=== PATIENT | female | born 1960 | race Caucasian/White ===

== ENCOUNTER → 2016-06-10 | Outpatient (CLI) | payer BC ==
--- NOTE | 2016-06-11 11:19 | MM ---
Reason for exam: screening (asymptomatic). Last mammogram was performed 1 year and 2 months ago. History: Family history of breast cancer in mother at age 76 and breast cancer in aunt. Benign right US cyst aspiration ea add of the right breast, October 17, 2007. Benign right US cyst aspiration ea add of the right breast, October 17, 2007. Benign right US cyst aspiration of the right breast, October 17, 2007. Cyst aspiration of the right breast, 2004. Took hormonal contraceptives for 1 year beginning at age 18. Physical Findings: A clinical breast exam by your physician is recommended on an annual basis and results should be correlated with mammographic findings. MG 3D Screening Mammo W/Cad Bilateral CC and MLO view(s) were taken. Prior study comparison: April 24, 2015, bilateral MG 3d screening mammo w/cad. The breast tissue is extremely dense which could obscure a lesion on mammography. There is chronic nodularity in the left breast. No significant changes when compared with prior studies. ASSESSMENT: Benign, BI-RAD 2 RECOMMENDATION: Routine screening mammogram of both breasts in 1 year.
== END | disposition home or self-care (01) ==
LOC: RADMAMWWP 14:57
PROVIDERS: ATTEND Family Medicine
DX: Z12.31 Encounter for screening mammogram for malignant neoplasm of breast (principal)
CPT/HCPCS: 77063; G0202

== ENCOUNTER 2016-10-25 06:42 | Emergency (ER) | payer BC ==
[2016-10-25 06:49] VITALS: BP 152/70; PULSE 100; RESP 20; TEMP 98.7
--- NOTE | 2016-10-25 07:25 | ED ---
General Adult HPI - General Chief complaint: Fall Stated complaint: Fall/Hip Pain Time Seen by Provider: 10/25/16 06:45 Source: patient, RN notes reviewed Mode of arrival: wheelchair Limitations: no limitations - History of Present Illness Initial comments: This is a 56-year-old female who presents emergency department complaining that her right buttocks and posterior thigh hurt when she stands. Patient states yesterday she tripped and fell while walking the dog and since then that areas been tender. Patient has not noticed any bruising. Patient is full range motion of the hip and knee. Patient is a small abrasion to the knee. Patient denies any head injury or neck injury. Patient denies any upper extremity injury. Patient denies any chest abdomen or back injury. Patient's only complaint is right buttocks and the hamstring area - Related Data Home Medications Medication Instructions Recorded Confirmed Atorvastatin [Lipitor] 10 mg PO HS 10/23/15 11/05/15 Metoprolol Succinate [Toprol XL] 100 mg PO HS 10/23/15 11/05/15 Allergies Allergy/AdvReac Type Severity Reaction Status Date / Time Sulfa (Sulfonamide Allergy Rash/Hives Verified 10/25/16 06:49 Antibiotics) Review of Systems ROS Statement: Those systems with pertinent positive or pertinent negative responses have been documented in the HPI. ROS Other: All systems not noted in ROS Statement are negative. Past Medical History Past Medical History: Hyperlipidemia, Hypertension History of Any Multi-Drug Resistant Organisms: None Reported Past Surgical History: No Surgical Hx Reported Past Psychological History: No Psychological Hx Reported Smoking Status: Never smoker Past Alcohol Use History: None Reported Past Drug Use History: None Reported General Exam - General Exam Comments Initial Comments: GENERAL Patient is well-developed and well-nourished. Patient is in mild distress. EYES Patient's pupils are equal and round. Extraocular motion is intact SKIN Unremarkable NEURO The patient is alert and oriented 3 PYSCH Patient has normal interpersonal interactions. MUSCULOSKELETAL Patient has some tenderness in the right buttocks but there is no bruising in that area and she has full range motion of the hip. Limitations: no limitations Course Vital Signs 10/25/16 06:44 Temperature 98.7 F Pulse Rate 100 Respiratory 20 Rate Blood Pressure 152/70 O2 Sat by Pulse 100 Oximetry Medical Decision Making - Medical Decision Making X-ray of the hip and pelvis show no acute abnormality. Disposition Clinical Impression: Hamstring strain Disposition: HOME SELF-CARE Condition: Good Instructions: Muscle Strain (ED) Additional Instructions: Continue taking Advil. Referrals: Greta Cline MD [Primary Care Provider] - 1-2 days Time of Disposition: 08:03
--- NOTE | 2016-10-25 07:47 | XR ---
EXAMINATION TYPE: XR Hip RT and AP Pelvis DATE OF EXAM: 10/25/2016 COMPARISON: NONE HISTORY: Pain fall TECHNIQUE: AP pelvis and two-view right hip FINDINGS: Femoral heads articulate with the acetabulum. No acute fractures are evident. Symphysis pub is and sacroiliac joints are normal. Normal colonic bowel gas is present. IMPRESSION: 1. Normal right hip and pelvis.
== END 2016-10-25 08:08 | disposition home or self-care (01) ==
LOC: EC 06:42
DX: S76.911A Strain of unspecified muscles, fascia and tendons at thigh level, right thigh, initial encounter (principal); S80.211A Abrasion, right knee, initial encounter; E78.5 Hyperlipidemia, unspecified; I10 Essential (primary) hypertension; Z79.899 Other long term (current) drug therapy; Z88.2 Allergy status to sulfonamides; W01.0XXA Fall on same level from slipping, tripping and stumbling without subsequent striking against object, initial encounter; Y93.K1 Activity, walking an animal
CPT/HCPCS: 73502; 99283